=== PATIENT | male | born 1985 | race Caucasian/White ===

== ENCOUNTER 2017-03-15 15:25 | Emergency (ER) | payer OTHER ==
[~2017-03-15] VITALS: Ht 190.5 cm; Wt 81.6 kg
[~2017-03-15 15:25] MED LIST: FLONASE ALLERG9.9 ML NAS; PREDNISONE10 MG PO; ROBITUSSIN AC 110 ML PO
[2017-03-15 15:28] VITALS: BP 125/82
[2017-03-15] MEDS ORDERED: CEPHALEXIN500 M1 PO (16:06)
== END 2017-03-15 16:13 | disposition home or self-care (01) ==
LOC: ED 15:25
DX: S61.412A Laceration without foreign body of left hand, initial encounter (principal); Z29.12 Encounter for prophylactic antivenin; Z79.899 Other long term (current) drug therapy; W22.8XXA Striking against or struck by other objects, initial encounter; Y93.89 Activity, other specified; Y92.69 Other specified industrial and construction area as the place of occurrence of the external cause; Y99.9 Unspecified external cause status

== ENCOUNTER 2018-04-26 08:25 | Emergency (ER) | payer OTHER ==
[~2018-04-26] VITALS: Ht 190.5 cm; Wt 83.9 kg
[2018-04-26 08:25] VITALS: BP 146/82
[~2018-04-26 08:25] MED LIST changes: +CEPHALEXIN500 M1 PO
[2018-04-26] MEDS ORDERED: PREDNISONE50 MG PO (09:53)
== END 2018-04-26 10:10 | disposition home or self-care (01) ==
LOC: ED 08:25
DX: M77.8 Other enthesopathies, not elsewhere classified (principal); M25.531 Pain in right wrist

== ENCOUNTER 2019-07-04 11:56 | Emergency (ER) | payer OTHER ==
[~2019-07-04] VITALS: Ht 187.9 cm; Wt 83.5 kg
--- NOTE | ~2019-07-04 | EKG ---
[place], [place] ELECTROCARDIOGRAM REPORT NAME: LUKE ALBARRAN UNIT #: [id number] ROOM: DOCTOR: EPIPHANY DRAFT REPORT BIRTHDATE: [birth year] [facility] Test Date: 2019-07-04 Test Time: 12:23:50 Pat Name: LUKE ALBARRAN Department: Room: Gender: Body Former: : 1985 Requested By: SANDEE ESCOBAR Order Number: [id number] Reading MD: Tremaine Vazquez MD Measurements Intervals [place] Rate: 46 P: 43 UT: 164 QRS: 7 QRSD: 94 T: 22 QT: 442 QTc: 387 Interpretive Statements Sinus bradycardia Nonspecific ST T changes Electronically Signed On 07-09-2019 3:59:26 PDT by Tremaine Vazquez MD CM:EKGRPT:ELECTROCARDIOGRAM REPORT [id number] SANDEE SARMIENTO DRAFT REPORT SANDEE ESCOBAR MD
--- NOTE | ~2019-07-04 | EKG ---
[place], [place] ELECTROCARDIOGRAM REPORT NAME: LUKE ALBARRAN UNIT #: [id number] ROOM: DOCTOR: EPIPHANY DRAFT REPORT BIRTHDATE: [birth year] [facility] Test Date: 2019-07-04 Test Time: 15:09:06 Pat Name: LUKE ALBARRAN Department: Room: Gender: Director Center: : 1985 Requested By: SANDEE ESCOBAR Order Number: [id number] Reading MD: Tremaine Vazquez MD Measurements Intervals [place] Rate: 53 P: 26 MT: 168 QRS: -5 QRSD: 96 T: 25 QT: 423 QTc: 398 Interpretive Statements Sinus arrhythmia ST elev, probable normal early repol pattern Electronically Signed On 07-09-2019 3:59:53 PDT by Tremaine Vazquez MD CM:EKGRPT:ELECTROCARDIOGRAM REPORT [id number] SANDEE SARMIENTO DRAFT REPORT SANDEE ESCOBAR MD
[~2019-07-04 11:56] MED LIST changes: +PREDNISONE50 MG PO
[2019-07-04 12:31] LABS: BASO # 0.1 10*3/uL (0.0-0.1); BASO % 0.4 % (0.0-1.0); EOS # 0.3 10*3/uL (0.0-0.4); HEMATOCRIT 47.9 % (42.0-52.0); HEMOGLOBIN 16.3 g/dl (14.0-18.0); LYMPH # 1.5 10*3/uL (1.3-4.4); LYMPH % 12.4 % (27.0-41.0); MEAN CELL VOLUME 93.9 fl (80.0-94.0); MEAN PLATELET VOLUME 11.3 fl (9.6-12.3); MONO # 0.9 10*3/uL (0.1-1.0); MONO % 7.3 % (3.0-9.0); NEUT # 9.5 10*3/uL (2.3-7.9); NEUT % 77.6 % (47.0-73.0); PLATELET COUNT AUTOMATED 262 10*3/uL (130-400); RED CELL DISTRI WIDTH 13.4 % (0-14.5); WHITE BLOOD COUNT 12.3 10*3/uL (4.8-10.8)
[2019-07-04 12:42] LABS: ACT PARTIAL THROMBO TIME 27.3 SECONDS (20.0-32.1)
[2019-07-04 12:47] LABS: ALBUMIN 4.3 gm/dl (3.1-4.5); ALKALINE PHOSPHATASE 109 U/L (45-117); BUN 6 mg/dl (7-24); CHLORIDE 105 mmol/L (98-107); POTASSIUM 4.3 mmol/L (3.5-5.1); SGOT/AST 25 IU/L (3-35); SGPT/ALT 68 U/L (12-78); SODIUM 138 mmol/L (136-145)
[2019-07-04 12:53] LABS: TROPONIN I < 0.015 ng/ml (<0.045)
[2019-07-04 12:54] LABS: URINE AMPHETAMINES < 1000 (1000ng/ml); URINE BARBITURATES < 200 (200ng/ml); URINE BENZODIAZEPINES < 200 (200ng/ml); URINE CANNABINOIDS (THC) > 50 (50ng/ml); URINE COCAINE < 300 (300ng/ml); URINE METHADONE < 300 (300ng/ml); URINE OPIATES < 300 (300ng/ml)
[2019-07-04 13:06] LABS: URINE PHENCYCLIDINE < 25 (25ng/ml)
[2019-07-04 14:24] VITALS: BP 121/87
== END 2019-07-04 16:38 | disposition home or self-care (01) ==
LOC: ED 11:56
PROVIDERS: Emergency Medicine
DX: R07.89 Other chest pain (principal); R06.02 Shortness of breath; R00.1 Bradycardia, unspecified; F12.90 Cannabis use, unspecified, uncomplicated

== ENCOUNTER → 2019-07-09 | Outpatient (CLI) | payer OTHER | END | disposition home or self-care (01) | LOC: RAD 18:55 | DX: K29.00 Acute gastritis without bleeding (principal); K59.00 Constipation, unspecified; R42 Dizziness and giddiness ==

== ENCOUNTER 2021-02-11 21:04 | Emergency (ER) | payer OTHER ==
[~2021-02-11] VITALS: Ht 190.5 cm; Wt 88.5 kg
[2021-02-11 21:16] VITALS: BP 140/98
[2021-02-11] MEDS ORDERED: ACYCLOVIR800 MG PO (21:23)
== END 2021-02-11 21:35 | disposition home or self-care (01) ==
LOC: ED 21:04
DX: B02.9 Zoster without complications (principal); F17.200 Nicotine dependence, unspecified, uncomplicated

== ENCOUNTER 2022-06-28 21:39 | Emergency (ER) | payer OTHER ==
[~2022-06-28] VITALS: Ht 187.9 cm; Wt 83.9 kg
[~2022-06-28 21:39] MED LIST changes: +ACYCLOVIR800 MG PO
[2022-06-28 22:04] VITALS: BP 137/82
[2022-06-28] MEDS ORDERED: Motrin,Rufen800 MG PO (22:19)
[2022-06-28] MEDS ORDERED: AMOXICILLIN500 M2 PO (22:19)
== END 2022-06-28 22:38 | disposition home or self-care (01) ==
LOC: ED 21:39
DX: K08.89 Other specified disorders of teeth and supporting structures (principal)